=== PATIENT | female | born 1975 | race Caucasian/White ===

== ENCOUNTER 2023-01-04 14:30 | Emergency (ER) | payer OTHER ==
[2023-01-04 14:49] VITALS: BP 112/75; PULSE 105; RESP 18; TEMP 98.3
[2023-01-04] MEDS ORDERED: Acetaminophen-Codeine 300-30mg TAB PO STA (15:25)
[2023-01-04] MEDS ORDERED: KETOROLAC 15 MG/ML 1 ML VIAL IM STA (15:25)
--- NOTE | 2023-01-04 15:42 | XR ---
EXAMINATION TYPE: XR knee complete LT DATE OF EXAM: 01/04/2023 CLINICAL HISTORY: pain TECHNIQUE: Three views of the left knee are obtained. COMPARISON: None. FINDINGS: There is no acute fracture/dislocation. Moderate degenerative narrowing patellofemoral erlinda nt space and medial tibiofemoral joint space. The overlying soft tissue appears unremarkable. IMPRESSION: There is no acute fracture or dislocation ICD 10 NO FRACTURE, INITIAL EVALUATION
--- NOTE | 2023-01-04 15:48 | ED ---
Extremity Problem HPI - General Chief complaint: Extremity Injury, Lower Stated complaint: L knee pain Time Seen by Provider: 01/04/23 14:58 Source: patient, RN notes reviewed Mode of arrival: wheelchair Limitations: no limitations - History of Present Illness Initial comments: This is a 36-year-old female who presents to the emergency department for left knee pain. Reports increasing pain over the last 2-3 days. States that pain is worse when she tries to bear weight. She is concerned that she may have severe arthritis contributing to these symptoms. Denies any known injuries. States that standing on concrete at work all day contributes to this pain. Denies any swelling or redness to the legs. She is taking Ibuprofen and applying ice with no relief in symptoms. Denies any fevers, chills, sore throat, cough, dyspnea, chest pain, palpitations, abdominal pain, nausea, vomiting, diarrhea, back pain, or headaches. MD Complaint: extremity pain, extremity swelling Onset/Timin -: days(s) Location: left, lower extremity - Related Data Previous Rx's Medication Instructions Recorded Albuterol Nebulized [Ventolin 2.5 mg INHALATION Q4H PRN #75 ml 07/29/22 Nebulized] Benzonatate [Tessalon Perles] 100 mg PO TID PRN #20 capsule 07/29/22 Codeine Phosphate/Guaifenesin 10 ml PO Q4H PRN 3 Days #180 ml 07/29/22 [Guaiatussin AC Liquid] Nirmatrelvir/Ritonavir [Paxlovid 1 each PO BID #1 each 07/29/22 300-100 mg Pack (Eua)] predniSONE 50 mg PO DAILY 5 Days #5 tab 01/04/23 Allergies Allergy/AdvReac Type Severity Reaction Status Date / Time beet Allergy Rash/Hives Verified 07/29/22 03:36 Review of Systems ROS Statement: Those systems with pertinent positive or pertinent negative responses have been documented in the HPI. ROS Other: All systems not noted in ROS Statement are negative. Past Medical History Past Medical History: No Reported History History of Any Multi-Drug Resistant Organisms: None Reported Past Surgical History: Hysterectomy Past Psychological History: Depression Smoking Status: Current every day smoker Past Alcohol Use History: None Reported Past Drug Use History: None Reported General Exam Limitations: no limitations General appearance: alert, in no apparent distress Head exam: Present: atraumatic, normocephalic, normal inspection Respiratory exam: Present: normal lung sounds bilaterally. Absent: respiratory distress, wheezes, rales, rhonchi, stridor Cardiovascular Exam: Present: regular rate, normal rhythm, normal heart sounds. Absent: systolic murmur, diastolic murmur, rubs, gallop, clicks Extremities exam: Present: other (Minor tenderness to palpation of the left patella. No swelling, erythema, or deformities.). Absent: calf tenderness Neurological exam: Present: alert, oriented X3, CN II-XII intact Psychiatric exam: Present: normal affect, normal mood Skin exam: Present: warm, dry, intact, normal color. Absent: rash Course Vital Signs 01/04/23 14:47 Temperature 98.3 F Pulse Rate 105 H Respiratory 18 Rate Blood Pressure 112/75 O2 Sat by Pulse 97 Oximetry Medical Decision Making - Medical Decision Making This is a 47-year-old female who presents to the emergency department for left knee pain. Was pt. sent in by a medical professional or institution? @ -No Did you speak to anyone other than the patient for history? @ -No Did you review nursing and triage notes? @ -Yes, and I agree, it is accurate with regards to the patient's symptoms. Were old charts reviewed? @ -No Differential Diagnosis? @ -Differential Knee Pain: Fracture, dislocation, sprain, contusion, meniscus injury, ACL/LCL/MCL/PCL injury, this is not meant to be an all-inclusive list. X-rays interpreted by me (1pt min.)? @ -X-ray of the left knee obtained. My interpretation identifies no acute fractures or dislocations. What testing was considered but not performed? (CT, X-rays, U/S, labs)? Why? @ -None What meds were considered but not given? Why? @ -None Did you discuss the management of the patient with other professionals? @ -No Did you reconcile home meds? @ -No Was smoking cessation discussed for >3mins.? @ -No Was critical care preformed (if so, how long)? @ -No Were there social determinants of health that impacted care today? How? (Homelessness, low income, unemployed, alcoholism, drug addiction, t ransportation, low edu. Level, literacy, decrease access to med. care, retirement, rehab)? @ -No Was there de-escalation of care discussed even if they declined? (Discuss DNR or withdrawal of care, Hospice)? @ -No What co-morbidities impacted this encounter? (DM, HTN, Smoking, COPD, CAD, Cancer, CVA, Hep., AIDS, mental health diagnosis, sleep apnea, morbid obesity)? @ -Morbid obesity Was patient admitted / discharged? @ -Discharged. X-ray obtained revealing no acute findings, however there are moderate arthritic changes. Pain was controlled in the emergency department with Toradol and Tylenol #3. Prescription for 5 day course of prednisone provided with dosing instructions reviewed. She is instructed to avoid taking over the counter antiinflammatories when taking the Prednisone and to only take it with Tylenol. Information for orthopedic follow-up provided. She instructed to contact them for a follow-up appointment. Undiagnosed new problem with uncertain prognosis? @ -None Drug Therapy requiring intensive monitoring for toxicity (Heparin, Nitro, Insulin, Cardizem)? @ -None Were any procedures done? @ -None Diagnosis/symptom? @ -Left knee pain, OA Acute, or Chronic, or Acute on Chronic? @ -Acute Uncomplicated (without systemic symptoms) or Complicated (systemic symptoms)? @ -Uncomplicated Side effects of treatment? @ -None Exacerbation, Progression, or Severe Exacerbation] @ -Not applicable Poses a threat to life or bodily function? @ -This is making it somewhat difficult for her to ambulate. Return precautions reviewed in depth, the patient is instructed to return to the emergency department with any new, worsening, or concerning symptoms. Patient verbalized understanding. This case was discussed in detail with the attending ED physician,Dr. Angelo. Presentation, findings, and treatment plan discussed in detail as well. - Radiology Data Radiology results: report reviewed, image reviewed Disposition Clinical Impression: Osteoarthritis of left knee Disposition: HOME SELF-CARE Instructions (If sedation given, give patient instructions): Osteoarthritis (ED), Knee Pain (ED) Additional Instructions: Return to the emergency department with any new, worsening, or concerning symptoms. Take the prednisone daily for 5 days. You may take this with Tylenol. Do not take anti-inflammatories such as ibuprofen with the prednisone. Take antiinflammatories after finishing the prednisone. You can alternate with ice and heat as well if you find it beneficial. Contact orthopedics as listed below for a follow-up appointment and reevaluation of ongoing symptoms. Follow up with your primary care provider in 1-2 days. Prescriptions: predniSONE 50 mg PO DAILY 5 Days #5 tab Is patient prescribed a controlled substance at d/c from ED?: No Referrals: Nonstaff,Physician [REFERRING] - 1-2 days Ashutosh Nobles MD [Medical Doctor] - 1-2 days
== END 2023-01-04 16:39 | disposition home or self-care (01) ==
LOC: EC 14:30
DX: M17.12 Unilateral primary osteoarthritis, left knee (principal); F32.A Depression, unspecified; F17.200 Nicotine dependence, unspecified, uncomplicated; Z91.018 Allergy to other foods
CPT/HCPCS: 73562; 99283; 96372; J1885

== ENCOUNTER 2025-04-02 15:48 | Emergency (ER) | payer OTHER ==
--- NOTE | 2025-04-02 16:27 | ED ---
Extremity Problem HPI - General Chief complaint: Extremity Problem,Nontraumatic Stated complaint: R leg pain Time Seen by Provider: 04/02/25 16:03 Source: patient, RN notes reviewed Mode of arrival: ambulatory Limitations: no limitations - History of Present Illness MD Complaint: extremity swelling, joint swelling, joint pain Onset/Timin -: week(s) Location: right, lower extremity Severity scale (1-10): 5 Consistency: intermittent Improves with: immobilization, elevation Worsens with: weight bearing, walking, palpation Associated Symptoms: denies other symptoms - Related Data Previous Rx's Medication Instructions Recorded Albuterol Nebulized [Ventolin 2.5 mg INHALATION Q4H PRN #75 ml 07/29/22 Nebulized] Benzonatate [Tessalon Perles] 100 mg PO TID PRN #20 capsule 07/29/22 Codeine Phosphate/Guaifenesin 10 ml PO Q4H PRN 3 Days #180 ml 07/29/22 [Guaiatussin AC Liquid] Nirmatrelvir/Ritonavir [Paxlovid 1 each PO BID #1 each 07/29/22 300-100 mg Pack (Eua)] predniSONE 50 mg PO DAILY 5 Days #5 tab 01/04/23 Allergies Allergy/AdvReac Type Severity Reaction Status Date / Time beet Allergy Rash/Hives Verified 07/29/22 03:36 Review of Systems ROS Statement: Those systems with pertinent positive or pertinent negative responses have been documented in the HPI. ROS Other: All systems not noted in ROS Statement are negative. Past Medical History Past Medical History: No Reported History History of Any Multi-Drug Resistant Organisms: None Reported Past Surgical History: Hysterectomy Past Psychological History: Depression Smoking Status: Current every day smoker Past Alcohol Use History: None Reported Past Drug Use History: None Reported General Exam Limitations: no limitations General appearance: alert, in no apparent distress Head exam: Present: atraumatic, normocephalic, normal inspection Eye exam: Present: normal appearance, PERRL, EOMI. Absent: scleral icterus, conjunctival injection, periorbital swelling ENT exam: Present: normal exam, mucous membranes moist Neck exam: Present: normal inspection. Absent: tenderness, meningismus, lymphadenopathy Respiratory exam: Present: normal lung sounds bilaterally. Absent: respiratory distress, wheezes, rales, rhonchi, stridor Cardiovascular Exam: Present: regular rate, normal rhythm, normal heart sounds. Absent: systolic murmur, diastolic murmur, rubs, gallop, clicks GI/Abdominal exam: Present: soft, normal bowel sounds. Absent: distended, tenderness, guarding, rebound, rigid Extremities exam: Present: full ROM, tenderness (Positive for right knee MCL/LCL TTP. Negative patellar, popliteal, tibial plateau TTP), normal capillary refill, pedal edema (Positive minor RLE edema compared to LLE), calf tenderness (Positive right calf Homans' sign), other (RLE distal neurovascular and motor function intact. Dorsalis pedis pulse +2, capillary refill less than 2 seconds. Plantar/dorsiflexion strength 5/5. Negative stasis dermatitis). Absent: joint swelling Back exam: Present: normal inspection Neurological exam: Present: alert, oriented X3, CN II-XII intact Psychiatric exam: Present: normal affect, normal mood Skin exam: Present: warm, dry, intact, normal color. Absent: rash Course Vital Signs 04/02/25 16:01 Temperature 97.7 F Pulse Rate 91 Respiratory 20 Rate Blood Pressure 107/77 O2 Sat by Pulse 98 Oximetry Medical Decision Making - Medical Decision Making Was pt. sent in by a medical professional or institution (, [facility], FLEXO OPERATOR, urgent care, hospital, or half-way...) When possible be specific @ -[No] Did you speak to anyone other than the patient for history (EMS, parent, family, police, friend...)? What history was obtained from this source @ -[No] Did you review nursing and triage notes (agree or disagree)? Why? @ -[I reviewed and agree with nursing and triage notes] Were old charts reviewed (outside hosp., previous admission, EMS record, old EKG, old radiological studies, urgent care reports/EKG's, half-way records)? Report findings @ -[No old charts were reviewed] Differential Diagnosis (chest pain, altered mental status, abdominal pain women, abdominal pain men, vaginal bleeding, weakness, fever, dyspnea, syncope, headache, dizziness, GI bleed, back pain, seizure, CVA, palpatations, mental health, musculoskeletal)? @ -Differential Musculoskeletal Muscular strain, contusion, ligament sprain, fracture, arthritis, septic arthritis, bursitis, cellulitis, muscle spasm, nerve compression, DVT, arterial occlusion, herpes zoster, electrolyte abnormality, tumor.... This is not meant to be in all inclusive list EKG interpreted by me (3pts min.). @ -Not done X-rays interpreted by me (1pt min.). @ -[None done] CT interpreted by me (1pt min.). @ -[None done] U/S interpreted by me (1pt. min.). @ -[None done] What testing was considered but not performed or refused? (CT, X-rays, U/S, labs)? Why? @ -[None] What meds were considered but not given or refused? Why? @ -[None] Did you discuss the management of the patient with other professionals (professionals i.e. , PA, FLEXO OPERATOR, lab, RT, psych nurse, health care social worker, slope runner, teacher, benefits officer, case management associate)? Give summary @ -[No] Was smoking cessation discussed for >3mins.? @ -[No] Was critical care preformed (if so, how long)? @ -[No] Were there social determinants of health that impacted care today? How? (Homelessness, low income, unemployed, alcoholism, drug addiction, transportation, low edu. Level, literacy, decrease access to med. care, fdc, rehab)? @ -[No] Was there de-escalation of care discussed even if they declined (Discuss DNR or withdrawal of care, Hospice)? DNR status @ -[No] What co-morbidities impacted this encounter? (DM, HTN, Smoking, COPD, CAD, Cancer, CVA, ARF, Chemo, Hep., AIDS, mental health diagnosis, sleep apnea, morbid obesity)? @ -[None] Was patient admitted / discharged? Hospital course, mention meds given and route, prescriptions, significant lab abnormalities, going to OR and other pertinent info. @ -[hospital course] Undiagnosed new problem with uncertain prognosis? @ -[No] Drug Therapy requiring intensive monitoring for toxicity (Heparin, Nitro, Insulin, Cardizem)? @ -[No] Were any procedures done? @ -[No] Diagnosis/symptom? @ -[default] Acute, or Chronic, or Acute on Chronic? @ -Acute Uncomplicated (without systemic symptoms) or Complicated (systemic symptoms)? @ -Uncomplicated Side effects of treatment? @ -[No] Exacerbation, Progression, or Severe Exacerbation? @ -[No] Poses a threat to life or bodily function? How? (Chest pain, [place], [place], pneumonia, PE, COPD, DKA, ARF, appy, cholecystitis, CVA, Diverticulitis, Homicidal, Suicidal, threat to staff... and all critical care pts) @ -[No] Disposition Clinical Impression: Osteoarthritis of right knee Disposition: HOME SELF-CARE Condition: Good Instructions (If sedation given, give patient instructions): Osteoarthritis (ED), Knee Pain (ED) Additional Instructions: Alternate Tylenol/Motrin every 4 hours for pain. Rest, ice, compression, elevation of affected extremity. Follow-up with orthopedics for ongoing management of knee pain. Is patient prescribed a controlled substance at d/c from ED?: No Referrals: Lakshmi Nash DO [Primary Care Provider] - 1-2 days [facility] [Provider Group] - 1-2 days [facility] [Provider Group] - 1-2 days Time of Disposition: 18:26
--- NOTE | 2025-04-02 17:14 | XR ---
EXAMINATION TYPE: XR knee complete RT DATE OF EXAM: 04/02/2025 4:58 PM COMPARISON: None CLINICAL INDICATION: Female, 49 years old with history of Atraumatic right knee pain with weightbeari ng; PHH, pain TECHNIQUE: XR knee complete RT 4 views submitted. FINDINGS: No evidence of any acute osseous pathology or soft tissue swelling. Tricompartmental oste ophyte formation involving the femoral condyles, tibial plateau and patella. Mild joint space narrowi ng. A fabella is present. IMPRESSION: 1. No acute osseous pathology. 2. Moderate tricompartmental osteoarthritic changes. [facility], , 04/02/2025 5:11 PM
--- NOTE | 2025-04-02 17:57 | US ---
EXAMINATION TYPE: US venous doppler duplex LE RT DATE OF EXAM: 04/02/2025 5:27 PM COMPARISON: NONE CLINICAL INDICATION: Female, 49 years old with history of RLE pain/edema; patient states RLE pain and swelling. states no hx dvt, not on thinners. pain mostly behind knee, Pain TECHNIQUE: The lower extremity deep venous system is examined utilizing real time linear array sonog martina with graded compression, color doppler sonography, and spectral doppler. SIDE PERFORMED: Right FINDINGS: VESSELS IMAGED: Common Femoral Vein Deep Femoral Vein Greater Saphenous Vein * Femoral Vein Popliteal Vein Small Saphenous Vein * Proximal Calf Veins (* superficial vessels) Right Leg: Negative for DVT, Color Doppler imaging shows patency of the vessels. Spectral waveforms are within normal limits. IMPRESSION: No ultrasound evidence for deep venous thrombosis. [facility], , 04/02/2025 5:55 PM
[2025-04-02 18:50] VITALS: BP 132/90; PULSE 88; RESP 18; TEMP 97.9
== END 2025-04-02 18:50 | disposition home or self-care (01) ==
LOC: EC 15:48
DX: M17.11 Unilateral primary osteoarthritis, right knee (principal); F17.200 Nicotine dependence, unspecified, uncomplicated; Z91.018 Allergy to other foods
CPT/HCPCS: 99284